=== PATIENT | male | born 1960 | race American Indian/Alaskan Native ===

== ENCOUNTER 2016-12-11 04:37 | Inpatient (IN) | payer OTHER ==
[2016-12-11] MEDS ORDERED: TYLENOL PO ONE (04:45)
[2016-12-11 05:19] LABS: Basophils % (Auto) 0.5 % (0.0-1.8); Eosinophils % (Auto) 0.1 % (0.0-4.3); Hematocrit 41.6 % (35.5-45.6); Hemoglobin 14.1 gm/dl (11.8-15.2); Mean Corpuscular HGB Conc 34 % (32-34); Mean Corpuscular Hemoglobin 28 pg (28-32); Mean Corpuscular Volume 82 fl (84-94); Platelet Count 155 K/mm3 (140-440); Red Blood Count 5.08 M/mm3 (3.65-5.03); Red Cell Distribution Width 13.7 % (13.2-15.2); White Blood Count 5.8 K/mm3 (4.5-11.0)
[2016-12-11 05:29] LABS: Blood Urea Nitrogen 12 mg/dL (9-20); Calcium 8.7 mg/dL (8.4-10.2); Carbon Dioxide 24 mmol/L (22-30); Chloride 98.5 mmol/L (98-107); Glucose 109 mg/dL (75-100); Sodium 137 mmol/L (137-145)
[2016-12-11 05:31] LABS: Anion Gap 19 mmol/L
--- NOTE | 2016-12-11 09:05 | Emergency Department Report ---
HPI - HPI HPI: 56-year-old male presents today with fever, chest congestion, cough, runny nose 3 days. Positive for sick contacts at work. Positive for chest pain associated with cough. Denies shortness of breath, nausea, vomiting, abdominal pain. Patient states that he hasn't got his flu shot this year. He tried TheraFlu, Metamucil, Tylenol, DayQuil, NyQuil without relief. <KENDY LEWIS - Last Filed: 12/11/16 18:52> <VÍCTOR HARMON - Last Filed: 12/11/16 20:16> - General Chief Complaint: Upper Respiratory Infection Time Seen by Provider: 12/11/16 08:39 ED Past Medical Hx - Past Medical History Previous Medical History?: No - Surgical History Past Surgical History?: No - Social History Smoking Status: Never Smoker Substance Use Type: None <KENDY LEWIS - Last Filed: 12/11/16 18:52> <VÍCTOR HARMON - Last Filed: 12/11/16 20:16> - Medications Home Medications: Home Medications Medication Instructions Recorded Confirmed Last Taken Type Amoxicillin [Amoxicillin TAB] 875 mg PO BID #20 tablet 12/11/16 Unknown Rx Fluticasone [Flonase] 1 spray NS QDAY #1 bottle 12/11/16 Unknown Rx guaiFENesin/DEXTROMETHORPHAN 1 each PO Q12H #30 tbmp.12hr 12/11/16 Unknown Rx [Mucinex Dm ER 1,200-60 mg Tab] ED Review of Systems ROS: Stated complaint: CHEST PAIN WITH COUGH Other details as noted in HPI Constitutional: fever. denies: chills, malaise Eyes: denies: eye pain ENT: congestion. denies: ear pain, throat pain Respiratory: cough. denies: shortness of breath, wheezing Cardiovascular: chest pain. denies: palpitations Endocrine: no symptoms reported Gastrointestinal: denies: abdominal pain, nausea, vomiting Skin: denies: rash Neurological: denies: headache, weakness <KENDY LEWIS - Last Filed: 12/11/16 18:52> ROS: Stated complaint: CHEST PAIN WITH COUGH Other details as noted in HPI <VÍCTOR HRAMON - Last Filed: 02/04/17 20:16> Physical Exam - Physical Exam Vital Signs: Vital Signs 12/11/16 12/11/16 12/11/16 04:42 07:30 08:21 Temperature 102.6 F H 99 F 99.1 F Pulse Rate 108 H 93 H Respiratory 18 12 Rate Blood Pressure 138/91 Blood Pressure 114/75 [Right] O2 Sat by Pulse 99 99 Oximetry Physical Exam: GENERAL: The patient is well-developed and well-nourished. Patient is in NAD. HEAD: Normocephalic. Atraumatic. EYES: PERRL. EARS: External auditory canals and tympanic membranes clear; hearing grossly intact. NOSE: Normal nasal mucosa with minimal nasal discharge. THROAT: Positive for erythema. Unable to fully visualize due to patient unwillingness to cooperate. NECK: Positive for anterior cervical lymphadenopathy. CHEST/LUNGS: Clear to auscultation throughout. HEART/CARDIOVASCULAR: Regular rate and rhythm. ABDOMEN: Abdomen is soft, nontender. No guarding or rebound tenderness. EXTREMITIES: Peripheral pulses intact. Capillary refill less than 2 seconds. NEURO: Alert and oriented x 3. Normal gait. <KENDY LEWIS - Last Filed: 12/11/16 18:52> - Physical Exam Vital Signs: Vital Signs 12/11/16 12/11/16 12/11/16 04:42 07:30 08:21 Temperature 102.6 F H 99 F 99.1 F Pulse Rate 108 H 93 H Respiratory 18 12 Rate Blood Pressure 138/91 Blood Pressure 114/75 [Right] O2 Sat by Pulse 99 99 Oximetry 12/11/16 14:58 Temperature 99.8 F H Pulse Rate 92 H Respiratory 16 Rate Blood Pressure Blood Pressure 127/82 [Right] O2 Sat by Pulse 99 Oximetry <VÍCTOR HARMON - Last Filed: 12/11/16 20:16> ED Course Vital Signs 12/11/16 12/11/16 12/11/16 04:42 07:30 08:21 Temperature 102.6 F H 99 F 99.1 F Pulse Rate 108 H 93 H Respiratory 18 12 Rate Blood Pressure 138/91 Blood Pressure 114/75 [Right] O2 Sat by Pulse 99 99 Oximetry - Reevaluation(s) Reevaluation #1: 12/11/16 14:[address] Johnson in regards to patients bloodwork. His creatinine kinase is 1841. Dr. Johnson recommended IV fluids with repeat labwork and to discharge home if the level is decreasing. <KENDY LEWIS - Last Filed: 12/11/16 18:52> Vital Signs 12/11/16 12/11/16 12/11/16 04:42 07:30 08:21 Temperature 102.6 F H 99 F 99.1 F Pulse Rate 108 H 93 H Respiratory 18 12 Rate Blood Pressure 138/91 Blood Pressure 114/75 [Right] O2 Sat by Pulse 99 99 Oximetry 12/11/16 14:58 Temperature 99.8 F H Pulse Rate 92 H Respiratory 16 Rate Blood Pressure Blood Pressure 127/82 [Right] O2 Sat by Pulse 99 Oximetry <VÍCTOR HARMON - Last Filed: 12/11/16 20:16> ED Medical Decision Making - Lab Data Result diagrams: 12/11/16 05:02 12/11/16 05:02 - Radiology Data Radiology results: report reviewed <KENDY LEWIS - Last Filed: 12/11/16 18:52> - Lab Data Result diagrams: 12/11/16 05:02 12/11/16 05:02 <VÍCTOR HARMON - Last Filed: 12/11/16 20:16> Critical care attestation.: If time is entered above; I have spent that time in minutes in the direct care of this critically ill patient, excluding procedure time. <KENDY LWEIS - Last Filed: 12/11/16 18:52> Critical care attestation.: If time is entered above; I have spent that time in minutes in the direct care of this critically ill patient, excluding procedure time. <VÍCTOR HARMON - Last Filed: 12/11/16 20:16> ED Disposition Is pt being admited?: No Does the pt Need Aspirin: No <KENDY LEWIS - Last Filed: 12/11/16 18:52> Is pt being admited?: Yes Time of Disposition: 20:00 (admitted to Dr Millan) <VÍCTOR HARMON - Last Filed: 12/11/16 20:16> Clinical Impression: Rhabdomyolysis Disposition: OP ADMITTED IP TO THIS HOSP Condition: Stable Instructions: Pharyngitis (ED), Strep Throat (ED) Additional Instructions: Follow-up with primary care provider. Return to the emergency department if symptoms worsen. Prescriptions: Amoxicillin [Amoxicillin TAB] 875 mg PO BID #20 tablet Fluticasone [Flonase] 1 spray NS QDAY #1 bottle guaiFENesin/DEXTROMETHORPHAN [Mucinex Dm ER 1,200-60 mg Tab] 1 each PO Q12H #30 tbmp.12hr Referrals: PRIMARY CARE, [Primary Care Provider] - 3-5 Days [facility] [Outside] - 3-5 Days Forms: Work/School Release Form(ED)
--- NOTE | 2016-12-11 09:22 | XRay Report ---
Chest 2 views: History: Fever/pain. Findings: Normal cardiomediastinal silhouette. Trachea is midline. No consolidation, pneumothorax or pleural effusion. Impression: No acute cardiopulmonary findings
[2016-12-11 09:46] LABS: Creatine Kinase MB 4.3 ng/mL (0.0-4.0)
[2016-12-11 09:48] LABS: Creatine Kinase 1841 units/L (55-170)
[2016-12-11] MEDS ORDERED: NACL 0.9% 1000 ML 1,000 ML IV ONE (14:48)
[2016-12-11] MEDS ORDERED: TYLENOL/CODEINE PO ONE (19:37)
[2016-12-11] MEDS ORDERED: NORCO 5/325 PO PRN (20:00)
[2016-12-11] MEDS ORDERED: ZOFRAN IV PRN (20:00)
[2016-12-11] MEDS ORDERED: TYLENOL PO PRN (20:03)
[2016-12-11 20:09] LABS: Urine Drugs of Abuse Note Disclamer
--- NOTE | 2016-12-11 20:11 | History and Physical Report ---
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 Positive sick contact at work. Past History Past Medical History: No medical history Past Surgical History: Other (right index tip amputated) Social history: full code. denies: smoking, alcohol abuse, prescription drug abuse, IV drug use Medications and Allergies Allergies Allergy/AdvReac Type Severity Reaction Status Date / Time No Known Allergies Allergy Verified 12/11/16 04:42 Home Medications Medication Instructions Recorded Confirmed Last Taken Type Amoxicillin [Amoxicillin TAB] 875 mg PO BID #20 tablet 12/11/16 Unknown Rx Fluticasone [Flonase] 1 spray NS QDAY #1 bottle 12/11/16 Unknown Rx guaiFENesin/DEXTROMETHORPHAN 1 each PO Q12H #30 tbmp.12hr 12/11/16 Unknown Rx [Mucinex Dm ER 1,200-60 mg Tab] Active Meds: Active Medications Acetaminophen (Tylenol) 650 mg PO Q6H PRN PRN Reason: Non Cardiac Pain or Temp>100.5 Acetaminophen/Hydrocodone Bitart ([place] 5/325) 1 each PO Q4H PRN PRN Reason: Pain, Moderate (4-6) Benzonatate (Tessalon Perles) 100 mg PO Q8HR PRN PRN Reason: Cough Heparin Sodium (Porcine) (Heparin) 5,000 unit SUB-Q Q12HR [facility] Ampicillin Sodium/Sulbactam Sodium (Unasyn/Ns 1.5 Gm/50 Ml) 1.5 gm in 50 mls @ 0 mls/hr IV Q6HR [place] PRN Reason: Protocol Sodium Chloride (Nacl 0.9% 1000 Ml) 1,000 mls @ 150 mls/hr IV DIRECT [facility] Ondansetron HCl (Zofran) 4 mg IV Q4H PRN PRN Reason: Nausea And Vomiting Pantoprazole Sodium (Protonix) 40 mg PO QDAY [facility] Zolpidem Tartrate (Ambien) 5 mg PO QHS PRN PRN Reason: Sleep Review of Systems All systems: negative (as HPI and all other ROS reviewed and negative.) Exam - Physical Exam Narrative exam: GEN: Ill-appearing toxic NAD, AWAKE, ALERT, ORIENTATED x 3 HEENT: NCAT, PERRL, EOMI, anterior cervical lymphadenopathy, op red but unable to visualize a tonsillar exudate NECK: SUPPLE, NO THYROMEGALY, NO JVD, NO LAD CVS: Regular tachycardic NORMAL S1S2 LUNGS/CHEST: CTA B, NORMAL CHEST EXPANSION B, GOOD AIR ENTRY B ABD: SOFT NTND, GBS, NO REBOUND OR GUARDING EXT/SKIN: NO SIGNIFICANT EDEMA OR RASH MSK: FROM X 4 EXTREMITIES NEURO: CN 2-12 GROSSLY INTACT, NO FOCAL DEFICITS PSY: CALM - Constitutional Vitals: Temp Pulse Resp BP Pulse Ox 99.8 F H 92 H 16 127/82 99 12/11/16 14:58 12/11/16 14:58 12/11/16 14:58 12/11/16 14:58 12/11/16 14:58 Results - Labs CBC & Chem 7: 12/11/16 05:02 12/11/16 05:02 Labs: Abnormal lab results 12/11/16 12/11/16 12/11/16 Range/Units 05:02 05:02 09:11 RBC 5.08 H (3.65-5.03) M/mm3 MCV 82 L (84-94) fl [facility] % (Auto) 15.5 H (0.0-7.3) % [facility] # 0.9 H (0.0-0.8) K/mm3 Glucose 109 H (75-100) mg/dL Total Creatine Kinase 1841 H (55-170) units/L CK-MB (CK-2) 4.3 H (0.0-4.0) ng/mL Salicylates (2.8-20.0) mg/dL 12/11/16 12/11/16 Range/Units 18:19 19:14 RBC (3.65-5.03) M/mm3 MCV (84-94) fl [facility] % (Auto) (0.0-7.3) % [facility] # (0.0-0.8) K/mm3 Glucose (75-100) mg/dL Total Creatine Kinase 1840 H (55-170) units/L CK-MB (CK-2) (0.0-4.0) ng/mL Salicylates < 0.3 L (2.8-20.0) mg/dL Assessment and Plan Patient is a 56 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 Positive sick contact at work. 1. sepsis pharyngitis, patient meets 2/4 Centor criteria + GAS rapid antigen test= pcn 2. Rhabdo: ivf, serial cpk
[2016-12-11 20:17] LABS: Bilirubin,Urine NEG (Negative); Blood,Urine SM (Negative); Ketones,Urine NEG (Negative); Leukocyte Esterase,Urine NEG (Negative); Mucus,Urine FEW /HPF; Nitrite,Urine NEG (Negative); Urobilinogen,Urine < 2.0 mg/dL (<2.0)
[2016-12-11] MEDS ORDERED: AMBIEN PO PRN (22:00)
[2016-12-11] MEDS ORDERED: TESSALON PERLES PO PRN (22:00)
[2016-12-11] MEDS: NACL 0.9% 1000 ML 1,000 ML IV SCH (23:11)
[2016-12-11] MEDS: UNASYN/NS 1.5 GM/50 ML 1.5 GM/50 ML BAG IV SCH (23:24)
[2016-12-12] MEDS: UNASYN/NS 1.5 GM/50 ML 1.5 GM/50 ML BAG IV SCH (05:14)
[2016-12-12] MEDS: NACL 0.9% 1000 ML 1,000 ML IV SCH ×4 (05:16→23:20)
--- NOTE | 2016-12-12 09:59 | Progress Note ---
Assessment and Plan Assessment and plan: 1. Streptococcal pharyngitis-we'll switch to by mouth amoxicillin. Chloraseptic throat spray and throat lozenges 2. Rhabdomyolysis-continue IV fluids with normal saline 3. DVT prophylaxis-lovenox History Interval history: f/u pharygitis; sepsis; rhabdomyolysis Patient seen at the bedside; his persisting dry cough, still has soreness in the throat. Was able to eat Hospitalist Physical - Constitutional Vitals: Temp Pulse Resp BP Pulse Ox 99.6 F 94 H 20 134/78 100 12/12/16 08:00 12/12/16 08:00 12/12/16 09:39 12/12/16 08:00 12/12/16 08:00 General appearance: Present: no acute distress, well-nourished - EENT Eyes: Present: PERRL, EOM intact. Absent: scleral icterus, conjunctival injection ENT: hearing intact, clear oral mucosa, no oropharyngeal erythema, no poor dentition - Neck Neck: Present: supple, normal ROM. Absent: enlarged thyroid, masses or JVD - Respiratory Respiratory effort: normal Respiratory: negative: diminished, rales, rhonchi, wheezing - Cardiovascular Rhythm: regular Heart Sounds: Present: S1 & S2. Absent: gallop - Extremities Extremities: no ischemia, pulses intact, pulses symmetrical, No edema Peripheral Pulses: within normal limits - Abdominal General gastrointestinal: soft, non-tender, non-distended, normal bowel sounds - Integumentary Integumentary: Present: clear - Psychiatric Psychiatric: appropriate mood/affect, intact judgment & insight, cooperative - Neurologic Neurologic: CNII-XII intact, moves all extremities Results - Labs CBC & Chem 7: 12/11/16 05:02 12/11/16 05:02 Labs: Laboratory Last Values WBC 5.8 K/mm3 (4.5-11.0) 12/11/16 05:02 RBC 5.08 M/mm3 (3.65-5.03) H 12/11/16 05:02 Hgb 14.1 gm/dl (11.8-15.2) 12/11/16 05:02 Hct 41.6 % (35.5-45.6) 12/11/16 05:02 MCV 82 fl (84-94) L 12/11/16 05:02 MCH 28 pg (28-32) 12/11/16 05:02 MCHC 34 % (32-34) 12/11/16 05:02 RDW 13.7 % (13.2-15.2) 12/11/16 05:02 Plt Count 155 K/mm3 (140-440) 12/11/16 05:02 Lymph % (Auto) 30.6 % (13.4-35.0) 12/11/16 05:02 Ross % (Auto) 15.5 % (0.0-7.3) H 12/11/16 05:02 Eos % (Auto) 0.1 % (0.0-4.3) 12/11/16 05:02 Baso % (Auto) 0.5 % (0.0-1.8) 12/11/16 05:02 Lymph # 1.8 K/mm3 (1.2-5.4) 12/11/16 05:02 Ross # 0.9 K/mm3 (0.0-0.8) H 12/11/16 05:02 Eos # 0.0 K/mm3 (0.0-0.4) 12/11/16 05:02 Baso # 0.0 K/mm3 (0.0-0.1) 12/11/16 05:02 Seg Neutrophils % 53.3 % (40.0-70.0) 12/11/16 05:02 Seg Neutrophils # 3.1 K/mm3 (1.8-7.7) 12/11/16 05:02 Sodium 137 mmol/L (137-145) 12/11/16 05:02 Potassium 4.0 mmol/L (3.6-5.0) 12/11/16 05:02 Chloride 98.5 mmol/L (98-107) 12/11/16 05:02 Carbon Dioxide 24 mmol/L (22-30) 12/11/16 05:02 Anion Gap 19 mmol/L 12/11/16 05:02 BUN 12 mg/dL (9-20) 12/11/16 05:02 Creatinine 1.1 mg/dL (0.8-1.5) 12/11/16 05:02 Estimated GFR > 60 ml/min 12/11/16 05:02 BUN/Creatinine Ratio 10.90 % 12/11/16 05:02 Glucose 109 mg/dL (75-100) H 12/11/16 05:02 Calcium 8.7 mg/dL (8.4-10.2) 12/11/16 05:02 Total Creatine Kinase 1858 units/L (55-170) H 12/12/16 05:53 CK-MB (CK-2) 4.3 ng/mL (0.0-4.0) H 12/11/16 09:11 CK-MB (CK-2) Rel Index 0.2 (0-4) 12/11/16 09:11 Troponin T < 0.010 ng/mL (0.00-0.029) 12/11/16 09:11 Urine Color Yellow (Yellow) 12/11/16 19:06 Urine Turbidity Clear (Clear) 12/11/16 19:06 Urine pH 5.0 (5.0-7.0) 12/11/16 19:06 Ur Specific [place] 1.014 (1.003-1.030) 12/11/16 19:06 Urine Protein 30 mg/dl mg/dL (Negative) 12/11/16 19:06 Urine Glucose (UA) Neg mg/dL (Negative) 12/11/16 19:06 Urine Ketones Neg mg/dL (Negative) 12/11/16 19:06 Urine Blood Sm (Negative) 12/11/16 19:06 Urine Nitrite Neg (Negative) 12/11/16 19:06 Urine Bilirubin Neg (Negative) 12/11/16 19:06 Urine Urobilinogen < 2.0 mg/dL (<2.0) 12/11/16 19:06 Ur Leukocyte Esterase Neg (Negative) 12/11/16 19:06 Urine WBC (Auto) 1.0 /HPF (0.0-6.0) 12/11/16 19:06 Urine RBC (Auto) 1.0 /HPF (0.0-6.0) 12/11/16 19:06 Urine Mucus Few /HPF 12/11/16 19:06 Salicylates < 0.3 mg/dL (2.8-20.0) L 12/11/16 19:14 Urine Opiates Screen Presumptive negative 12/11/16 19:06 Urine Methadone Screen Presumptive negative 12/11/16 19:06 Ur Barbiturates Screen Presumptive negative 12/11/16 19:06 Ur Phencyclidine Scrn Presumptive negative 12/11/16 19:06 Ur Amphetamines Screen Presumptive negative 12/11/16 19:06 U Benzodiazepines Scrn Presumptive negative 12/11/16 19:06 Urine Cocaine Screen Presumptive negative 12/11/16 19:06 U Marijuana (THC) Screen Presumptive negative 12/11/16 19:06 Drugs of Abuse Note Disclamer 12/11/16 19:06 Plasma/Serum Alcohol < 0.01 gm% (0-0.07) 12/11/16 19:14 Microbiology 12/11/16 Unknown Peripheral/Venous Blood Culture - Preliminary Culture in Progress 12/11/16 Unknown Peripheral/Venous Blood Culture - Preliminary Culture in Progress 12/11/16 12:28 Throat Group A Streptococcus Rapid Screen - Final 12/11/16 10:40 Nasopharyngeal Swab Influenza Types A,B Antigen (RADHA) - Final - Imaging and Cardiology Chest x-ray: report reviewed (no acute cardiopulmonary findings)
[2016-12-12] MEDS ORDERED: FLONASE NS SCH (10:00)
[2016-12-12] MEDS ORDERED: PROTONIX PO SCH (10:00)
[2016-12-12] MEDS ORDERED: CHLORASEPTIC MM PRN (10:06)
[2016-12-12] MEDS: ROBITUSSIN PO PRN ×2 (10:34→16:58)
[2016-12-12] MEDS ORDERED: LOVENOX SUB-Q SCH (11:00)
[2016-12-12] MEDS: TRIMOX PO SCH ×2 (14:14→21:10)
[2016-12-12] MEDS ORDERED: HEPARIN SUB-Q SCH (22:00)
[2016-12-13] MEDS: NACL 0.9% 1000 ML 1,000 ML IV SCH (05:28)
[2016-12-13] MEDS: TRIMOX PO SCH (05:29)
--- NOTE | 2016-12-13 07:24 | Admit Criteria Form ---
Admission Criteria Documentation: SEPSIS and OTHER FEBRILE ILLNESS, W/O FOCAL INFECTION Clinical Indications for Admission to Inpatient Care ( Place 'X' for any and all applicable criteria): Admission is indicated for ANY ONE of the following (1)(2)(3)(4): [ ] I. Bacteremia [X]II. Suspected or identified specific infection requiring hospitalization (eg, meningitis, endocarditis) [ ]III. Hemodynamic instability [ ]IV. Altered mental status [ ]V. Failure or unavailability of outpatient antimicrobial treatment [ ]. Hypoxemia [ ]VII. Seizures [ ]VIII. High-risk febrile neutropenia [ ]IX. Need for parenteral antibiotic in patient who is likely to abuse vascular access device (eg, injection drug user) [A](7) [ ]X. Temperature greater than 104.9 degrees F (40.5 degrees C) (oral) [X]XI. Inpatient admission required rather than observation care because of ANY ONE of the following: [X]1) Specific infection identified that is too severe for outpatient treatment or observation care trial [ ]2) Metabolic disorder (eg, hypoglycemia, hyperglycemia, metabolic acidosis) that is severe or persistent [ ]3) Temperature greater than 103.1 degrees F (39.5 degrees C) ( oral) that is not responsive to observation care treatment [X]4) IV fluid to replace significant ongoing (eg, for over 24 hours) losses (> 3 L/m2 per day) [ ]5) Supplemental oxygen or respiratory treatments for over 24 hours that is performable only in acute inpatient setting [ ]6) Parenteral nutrition regimen need that must be implemented on inpatient basis [ ]7) Strict or protective (eg, laminar flow) isolation [X]8) Other condition, treatment or monitoring requiring inpatient admission Extended stay beyond goal length of stay may be needed for(1)(3) [ ]a) Sepsis or septic shock(22) [ ]b) Positive blood cultures [ ]c) Insufficient oral intake [ ]d) High-risk febrile neutropenia(29)(30) [ ]e) Continued fever and clinical instability [ ]f) Clinically active comorbid illness (e.g,heart failure, renal failure , diabetes) The original [facility] [employer] content created by [employer] has been revised. The portions of the content which have been revised are identified through the use of italic text or in bold, and [employer] has neither reviewed nor approved the modified material. All other unmodified content is copyright [facility]. Please see references footnoted in the original [facility] edition 2016 Admission Criteria Met: Yes
[2016-12-13 08:13] VITALS: BP 140/86
--- NOTE | 2016-12-13 08:31 | Discharge Summary ---
Providers - Providers Date of Admission: 12/11/16 19:43 Date of discharge: 12/13/16 Attending physician: RIP COLLINS Primary care physician: [employer]OD Hospitalization Reason for admission: streptococcal pharyngitis; rhabdomyolysis Condition: Stable Pertinent studies: Microbiology 12/11/16 Unknown Peripheral/Venous Blood Culture - Preliminary NO GROWTH AFTER 24 HOURS 12/11/16 Unknown Peripheral/Venous Blood Culture - Preliminary NO GROWTH AFTER 24 HOURS 12/11/16 12:28 Throat Group A Streptococcus Rapid Screen - Final 12/11/16 10:40 Nasopharyngeal Swab Influenza Types A,B Antigen (RADHA) - Final Hospital course: Mr. Denis is a 56 yo M who presented with sore throat and generalized weakness; he was diagnosed as streptococcal pharygitis and rhabdomyolysis; he was started on IV antibiotics and IVF; his weakness improved and his sore throat improved; he agreed to increase his water intake and avoid strenuous physical activity over the nest 2 days. condition at discharge-stable 31 minutes spent on discharge Disposition: DISCHARGED TO HOME OR SELFCARE - Discharge Diagnoses (1) Strep pharyngitis Status: Acute (2) Rhabdomyolysis Status: Acute Qualifiers: Rhabdomyolysis type: R Encounter type: E Core Measure Documentation - Palliative Care Palliative Care/ Comfort Measures: Not Applicable - Core Measures Any of the following diagnoses?: none Exam - Constitutional Vitals: Temp Pulse Resp BP Pulse Ox 98.4 F 70 16 140/86 99 12/13/16 08:00 12/13/16 08:00 12/13/16 08:00 12/13/16 08:00 12/13/16 08:00 General appearance: Present: no acute distress, well-nourished - EENT Eyes: Present: PERRL, EOM intact. Absent: scleral icterus, conjunctival injection ENT: hearing intact, clear oral mucosa, no oropharyngeal erythema, no poor dentition - Neck Neck: Present: supple, normal ROM. Absent: enlarged thyroid, masses or JVD - Respiratory Respiratory effort: normal Respiratory: negative: diminished, rales, rhonchi, wheezing - Cardiovascular Rhythm: regular Heart Sounds: Present: S1 & S2. Absent: gallop - Extremities Extremities: no ischemia, pulses intact, pulses symmetrical, No edema Peripheral Pulses: within normal limits - Abdominal General gastrointestinal: Present: soft, non-tender, non-distended, normal bowel sounds Male genitourinary: Present: deferred - Rectal Rectal Exam: deferred - Integumentary Integumentary: Present: clear - Musculoskeletal Musculoskeletal: strength equal bilaterally - Psychiatric Psychiatric: appropriate mood/affect, intact judgment & insight, cooperative - Neurologic Neurologic: CNII-XII intact Plan Activity: no restrictions Diet: regular Additional Instructions: increase water intake- aprox 1.5 to 2 liters for the next 2 days; no strenuous physical activity Follow up with: [facility] [Outside] - 3-5 Days PRIMARY CARE, [Primary Care Provider] - 3-5 Days Forms: Work/School Release Form(ED) Prescriptions: Amoxicillin [Trimox CAP] 500 mg PO Q8HR #27 capsule Fluticasone [Flonase] 200 mcg NS QDAY #1 bottle guaiFENesin [Robitussin] 200 mg PO Q4H PRN 5 Days PRN Reason: Cough
[2016-12-13] MEDS ORDERED: LOVENOX SUB-Q SCH (10:00)
== END 2016-12-13 10:00 | disposition home or self-care (01) | DRG 872 ==
LOC: ED 04:37 → 2B-SURG 19:43
PROVIDERS: ADMIT Internal Medicine; ATTEND Hospitalist
DX: A41.9 Sepsis, unspecified organism (principal); M62.82 Rhabdomyolysis; J02.0 Streptococcal pharyngitis
CPT/HCPCS: 36415; 71020; 80048; 80307; 80320; 81001; 82550; 82553; 84484; 85025; 87040; 87400; 87430; 96360; G0480; J0295; J7030

== ENCOUNTER 2019-11-28 17:34 | Emergency (ER) | payer SELFPAY ==
--- NOTE | 2019-11-28 18:42 | Event Note ---
ED Screening Note Date of service: 11/28/19 Time: 18:41 ED Screening Note: 59 y o male presents for dizziness intermittent cc of dehydration, room spinning [facility] acc eval This initial assessment/diagnostic orders/clinical plan/treatment(s) is/are subject to change based on patients health status, clinical progression and re- assessment by fellow clinical providers in the ED. Further treatment and workup at subsequent clinical providers discretion. Patient/guardian urged not to elope from the ED as their condition may be serious if not clinically assessed and managed. Initial orders include: cbc,cmp
[2019-11-28 19:51] LABS: Basophils % (Auto) 0.5 % (0.0-1.8); Eosinophils # (Auto) 0.1 K/mm3 (0.0-0.4); Hematocrit 40.3 % (35.5-45.6); Hemoglobin 13.7 gm/dl (11.8-15.2); Lymphocytes % (Auto) 32.4 % (13.4-35.0); Mean Corpuscular HGB Conc 34 % (32-34); Mean Corpuscular Volume 84 fl (84-94); Monocytes # (Auto) 0.8 K/mm3 (0.0-0.8); Monocytes % (Auto) 12.7 % (0.0-7.3); Platelet Count 215 K/mm3 (140-440)
[2019-11-28 20:18] LABS: Alanine Aminotransferase 32 units/L (7-56); Albumin 4.6 g/dL (3.9-5); BUN/Creatinine Ratio 12; Blood Urea Nitrogen 12 mg/dL (9-20); Calcium 9.8 mg/dL (8.4-10.2); Hemolysis Index 4
--- NOTE | 2019-11-29 00:32 | Emergency Department Report ---
HPI - General Chief Complaint: Chest Pain Time Seen by Provider: 11/28/19 23:19 - HPI HPI: Room 6 The patient is a 59-year-old male presenting with a chief complaint of chest pain and nosebleed. The patient states 3 months ago. An episode of chest pain so he went to [facility]. Patient states she had an evaluation which included an MRI of his chest and serial enzymes. The patient ruled out was started on aspirin and discharged home. Patient states yesterday he had an episode right-sided chest discomfort that felt like gas and last for one to 2 hours and then resolved. The patient states he never had shortness of breath, nausea/vomiting or diaphoresis with it and his pain resolved after having a bowel movement. Patient states yesterday he also had an episode of nosebleed which has since resolved. Patient states she came to emergency department today to be evaluated for the symptoms he had yesterday. Patient is completely symptomatic. Patient states his last stress test occurred approximately 2 years but he is never had a heart cath. Location: [See above] Duration: [See above] Quality: [See above] Severity: [See above] Timing: [See above] Context: [See above] Modifying factors: [See above] Associated signs and symptoms: [see above] ED Past Medical Hx - Past Medical History Previous Medical History?: Yes Hx Hypertension: Yes - Surgical History Past Surgical History?: No - Family History Family history: no significant - Social History Smoking Status: Former Smoker (none 30 years) Substance Use Type: None (denies illicit drug use) - Medications Home Medications: Home Medications Medication Instructions Recorded Confirmed Last Taken Type Amoxicillin [Trimox CAP] 500 mg PO Q8HR #27 capsule 12/13/16 Unknown Rx Fluticasone [Flonase] 200 mcg NS QDAY #1 bottle 12/13/16 Unknown Rx guaiFENesin [Robitussin] 200 mg PO Q4H PRN 5 Days oral.liqd 12/13/16 Unknown Rx ED Review of Systems ROS: Stated complaint: CHEST PAIN/NOSE BLEED Other details as noted in HPI Constitutional: denies: diaphoresis Eyes: denies: eye pain ENT: denies: throat pain Respiratory: denies: shortness of breath Cardiovascular: chest pain Endocrine: no symptoms reported Gastrointestinal: denies: nausea, vomiting Genitourinary: denies: dysuria Musculoskeletal: denies: back pain Neurological: denies: headache Physical Exam - Physical Exam Vital Signs: Vital Signs 11/28/19 18:00 Temperature 98.4 F Pulse Rate 77 Respiratory 16 Rate Blood Pressure 158/95 O2 Sat by Pulse 98 Oximetry Physical Exam: GENERAL: The patient is well-developed well-nourished male lying on stretcher not appearing to be in acute distress. [] HEENT: Normocephalic. Atraumatic. Extraocular motions are intact. Patient has moist mucous membranes. NECK: Supple. Trachea midline CHEST/LUNGS: Clear to auscultation. There is no respiratory distress noted. HEART/CARDIOVASCULAR: Regular. There is no tachycardia. There is no gallop rub or murmur. ABDOMEN: Abdomen is soft, nontender. Patient has normal bowel sounds. There is no abdominal distention. SKIN: There is no rash. There is no edema. There is no diaphoresis. NEURO: The patient is awake, alert, and oriented. The patient is cooperative. The patient has normal speech MUSCULOSKELETAL:There is no evidence of acute injury. ED Course Vital Signs 11/28/19 18:00 Temperature 98.4 F Pulse Rate 77 Respiratory 16 Rate Blood Pressure 158/95 O2 Sat by Pulse 98 Oximetry ED Medical Decision Making - Lab Data Result diagrams: 11/28/19 19:39 11/28/19 19:39 Laboratory Tests 11/28/19 11/28/19 11/29/19 19:39 19:39 00:03 WBC 6.3 RBC 4.80 Hgb 13.7 Hct 40.3 MCV 84 MCH 28 MCHC 34 RDW 14.0 Plt Count 215 Lymph % (Auto) 32.4 Stark % (Auto) 12.7 H Eos % (Auto) 1.0 Baso % (Auto) 0.5 Lymph # 2.0 Stark # 0.8 Eos # 0.1 Baso # 0.0 Seg Neutrophils % 53.4 Seg Neutrophils # 3.4 Sodium 141 Potassium 4.1 Chloride 101.7 Carbon Dioxide 26 Anion Gap 17 BUN 12 Creatinine 1.0 Estimated GFR > 60 BUN/Creatinine Ratio 12 Glucose 84 Calcium 9.8 Total Bilirubin 0.40 AST 47 H ALT 32 Alkaline Phosphatase 97 Troponin T < 0.010 Total Protein 7.8 Albumin 4.6 Albumin/Globulin Ratio 1.4 11/29/19 00:33 WBC RBC Hgb Hct MCV MCH MCHC RDW Plt Count Lymph % (Auto) Stark % (Auto) Eos % (Auto) Baso % (Auto) Lymph # Stark # Eos # Baso # Seg Neutrophils % Seg Neutrophils # Sodium Potassium Chloride Carbon Dioxide Anion Gap BUN Creatinine Estimated GFR BUN/Creatinine Ratio Glucose Calcium Total Bilirubin AST ALT Alkaline Phosphatase Troponin T < 0.010 Total Protein Albumin Albumin/Globulin Ratio - EKG Data -: EKG Interpreted by Me EKG shows normal: sinus rhythm Rate: normal - EKG Data When compared to previous EKG there are: previous EKG unavailable Interpretation: other (no ischemic changes seen) - Differential Diagnosis atypical chest pain, gas, GERD, epistaxis Critical care attestation.: If time is entered above; I have spent that time in minutes in the direct care of this critically ill patient, excluding procedure time. ED Disposition Clinical Impression: Atypical chest pain, History of epistaxis Disposition: TO HOME OR SELFCARE Is pt being admited?: No Does the pt Need Aspirin: No Condition: Stable Instructions: Chest Pain (ED) Additional Instructions: Return to the emergency department should you develop worsening symptoms, inability to tolerate food or liquids, high fever or any other concerns Referrals: JUDITH GUEVARA MD [Staff Physician] - 3-5 Days (Dr Guevara is a primary physician. Please follow-up with him to be established as a patient) MARGIE BELLA MD [Staff Physician] - 3-5 Days (Dr Bella is a theater projectionist. Please follow-up with him for further evaluation) Time of Disposition: 01:49
[2019-11-29 02:09] VITALS: BP 111/64
== END 2019-11-29 02:08 | disposition home or self-care (01) ==
LOC: ED 17:34
DX: R07.89 Other chest pain (principal); I10 Essential (primary) hypertension; Z87.898 Personal history of other specified conditions; Z87.891 Personal history of nicotine dependence
CPT/HCPCS: 36415; 80053; 84484; 85025; 93005; 93010